=== PATIENT | female | born 1995 | race Caucasian/White ===

== ENCOUNTER 2019-07-08 10:21 | Inpatient (IN) | payer SELFPAY ==
[~2019-07-08] VITALS: Ht 170.2 cm; Wt 117.0 kg
[2019-07-08] MEDS ORDERED: KETOROLAC TROMETHAMINE 30 MG/ML VIAL IV STA (11:23)
[2019-07-08] MEDS ORDERED: KETOROLAC TROMETHAMINE 30 MG/ML VIAL ONE (11:29)
--- NOTE | 2019-07-08 11:45 | NUR ---
US AT BEDSIDE
--- NOTE | 2019-07-08 12:32 | Diagnostic Imaging Report ---
EXAM: Right upper quadrant abdominal ultrasound INDICATION: Right upper quadrant pain COMPARISON: None. TECHNIQUE: Transverse and longitudinal images of the right upper quadrant abdomen were obtained FINDINGS: Liver: Size: 17.7 cm in the right midclavicular line Appearance: Normal echogenicity, smooth contour Mass: No focal masses Gallbladder: Dependent gallstones in the gallbladder. No gall bladder wall thickening, pericholecystic fluid, or gallbladder distention. The gallbladder wall measures 2 mm. Negative sonographic Rayo's sign. Bile Ducts: Intrahepatic Ducts: No dilatation Extrahepatic Ducts: Common bile duct is mildly dilated, measuring up to 8 mm. Pancreas: Visualized portions of the pancreatic head, neck and proximal body are normal. Kidney: The right kidney measures 11.9 cm without evidence of hydronephrosis or stone. Vessels: Aorta: Visualized portions are normal Inferior Vena Cava: Visualized portions are normal Main Portal Vein: 0.8 cm, normal size with hepatopetal flow. Free Fluid: No ascites or pleural effusion IMPRESSION: Cholelithiasis without sonographic evidence of cholecystitis. Mildly dilated common bile duct measuring up to 8 mm. Comparison to prior imaging, if available would be helpful. If there is concern for choledocholithiasis, MRCP is recommended. Borderline hepatomegaly. Signed by: Phyllis Carney MD on 07/08/2019 12:29 PM
[2019-07-08] MEDS ORDERED: LEVOFLOXACIN 500MG/D5W 100ML 100 ML IV SCH (13:15)
[2019-07-08] MEDS ORDERED: MORPHINE SULFATE INJ 4 MG/ML INJ 1ML IV PRN (13:15)
[2019-07-08] MEDS ORDERED: ONDANSETRON HCL INJ 2MG/ML 2ML 2 MG/ML VIAL IV PRN (13:15)
--- NOTE | 2019-07-08 13:24 | NUR ---
PT TO BE ADMITTED, PT AWARE OF POC, VITAL SIGNS STABLE, PT VOICES NO COMPLAINTS AT THIS TIME
[2019-07-08] MEDS ORDERED: LEVOFLOXACIN 500MG/D5W 100ML IV SCH (13:30)
--- OUTSIDE RECORDS SUMMARY | 2019-07-08 13:46 | XMS REPORT ---
Author Author [facility] Address Unknown Phone Unavailable Care Team Providers Care Adjustment Supervisor Name Role Phone GERMAIN LINO Unavailable Unavailable Problems This patient has no known problems. Allergies, Adverse Reactions, Alerts This patient has no known allergies or adverse reactions. Medications This patient has no known medications. Results Test Description Test Time Test Comments Text Results Atomic Results Result Comments ABDOMEN LIMITED-HOPD 2019-07-08 12:27:00 [place] [address] Patient Name: KELLIE NÚÑEZ MR #: [id number] : 1995 Age/Sex: 23/F Req #: [id number] Adm Physician: Ordered by: GERMAIN LINO MD Report #: [id number] Location: [facility] Room/Bed: Procedure: [id number] HOPD/ ABDOMEN LIMITED-HOPD Exam Date: Exam Time: REPORT STATUS: Signed EXAM: Right upper quadrant abdominal ultrasound MARY CATION: Right upper quadrant pain COMPARISON: None. TECHNIQUE: Transverse and longitudinal images of the right upper quadrant abdomen were obtained FINDINGS: Liver: Size: 17.7 cm in the right midclavicular line Appearance: Normal echogenicity, smooth contour Mass: No focal masses Gallbladder: Dependent gallstones in the gallbladder. No gall bladder wall thickening, pericholecystic fluid, or gallbladder distention. The gallbladder wall measures 2 mm. Negative sonographic Rayo's sign. Bile Ducts: Intrahepatic Ducts: No dilatation Extrahepatic Ducts: Common bile duct is mildly dilated, measuring up to 8 mm. Pancreas: Visualized portions of the pancreatic head, neck and proximal body are normal. Kidney: The right kidney measures 11.9 cm without evidence of hydronephrosis or stone. Vessels: Aorta: Visualized portions are normal Inferior Vena Cava: Visualized portions are normal Main Portal Vein: 0.8 cm, normal size with hepatopetal flow. Free Fluid: No ascites or pleural effusion IMPRESSION: Cholelithiasis without sonographic evidence of cholecystitis. Mildly dilated common bile duct measuring up to 8 mm. Comparison to prior imaging, if available would be helpful. If there is concern for choledocholithiasis, MRCP is recommended. Borderline hepatomegaly. Signed by: Nahid Avila MD on 07/08/2019 12:29 PM Dictated By: NAHID AVILA MD 1229 Transcribed By: DION on 07/08/19 1229 COPY TO: GERMAIN LINO MD
[2019-07-08] MEDS: METRONIDAZOLE 500MG/NS 100ML 100 ML IV SCH ×2 (14:28→21:00)
[2019-07-08] MEDS ORDERED: METRONIDAZOLE 500MG/NS 100ML 100 ML IV ONE (14:31)
[2019-07-08] MEDS: LEVOFLOXACIN 500MG/D5W 100ML 100 ML IV SCH (15:29)
[2019-07-08] MEDS ORDERED: LEVOFLOXACIN 500MG/D5W 100ML 100 ML IV ONE (15:32)
--- NOTE | 2019-07-08 17:30 | NUR ---
RECEIVED PT FROM [facility] VIA EMT. PT IS ALERT, NO S/S OF DISTRESS. PT COMPLAINS OF NO PAIN. PT ORIENTED TO ROOM, CALL LIGHT AND INSTRUCTED PT TO CALL RN FOR HELP.
[2019-07-08 17:42] VITALS: BP 158/91
[2019-07-08] MEDS: D5.45%NS/KCL 20MEQ 1,000 ML IV SCH ×2 (17:48→21:40)
--- NOTE | 2019-07-08 18:00 | NUR ---
DR. CRAWOFRD SAW THE PT AND PUT IN NEW ORDERS
[2019-07-08 18:07] VITALS: BP 158/91
[2019-07-08] MEDS ORDERED: HYDRALAZINE HCL 20 MG/ML VIAL IV PRN (18:15)
[2019-07-08] MEDS: FAMOTIDINE 20 MG/2 ML VIAL IV SCH (18:21)
[2019-07-08] MEDS: METOCLOPRAMIDE HCL 10 MG/2ML VIAL IV SCH (18:21)
[2019-07-08 19:39] VITALS: BP 159/84
[2019-07-08 21:00] VITALS: BP 159/84
--- NOTE | 2019-07-08 21:00 | NUR ---
PATIENT RESTING IN BED AOX4, NO SIGNS OF DISTRESS NOTED. FAMILY MEMBERS AT BEDSIDE AND PATIENT VOICES NO PAIN AT THIS TIME. PATIENT VOICED UNDERSTANDING OF PROCEDURE TOMORROW AND SIGN CONSENT, PATIENT ALSO UNDERSTOOD NPO AFTER MIDNIGHT. BED IN LOWEST POSITION, SIDE RAILS ARE UP, CALL LIGHT WITHIN REACH, WILL CONTINUE TO MONITOR.
[2019-07-08 23:44] VITALS: BP 128/74
[2019-07-09] MEDS: D5.45%NS/KCL 20MEQ 1,000 ML IV SCH (03:02)
[2019-07-09 04:52] VITALS: BP 110/73
[2019-07-09 05:27] LABS: BASOPHILS # (AUTO) 0.1 (0.0-0.1); BASOPHILS % 0.6 % (0.0-1.0); EOSINOPHILS # (AUTO) 0.2 (0.0-0.4); EOSINOPHILS % 2.6 % (0.0-6.0); HEMATOCRIT 34.1 % (34.2-44.1); HEMOGLOBIN 10.6 g/dL (12.0-16.0); LYMPHOCYTES # (AUTO) 2.6 (1.0-3.2); LYMPHOCYTES % 32.9 % (18.0-39.1); MEAN CORPUSCULAR HEMOGLOBIN 26.3 pg (28-32); MEAN CORPUSCULAR HGB CONC 31.1 g/dL (31-35); MEAN CORPUSCULAR VOLUME 84.6 fL (81-99); MONOCYTES # (AUTO) 0.5 (0.2-0.8); MONOCYTES % 5.9 % (4.4-11.3); NEUTROPHILS # (AUTO) 4.5 (2.1-6.9); NEUTROPHILS % 57.7 % (38.7-80.0); PLATELET COUNT 241 x10e3/uL (140-360); RED BLOOD COUNT 4.03 x10e6/uL (3.6-5.1); RED CELL DISTRIBUTION WIDTH 12.9 % (11.7-14.4)
[2019-07-09] MEDS: METRONIDAZOLE 500MG/NS 100ML 100 ML IV SCH ×2 (05:34→13:59)
[2019-07-09 05:47] LABS: ALANINE AMINOTRANSFERASE 190 IU/L (0-55); ALBUMIN 2.9 g/dL (3.5-5.0); ALKALINE PHOSPHATASE 142 IU/L (40-150); AMYLASE 87 U/L (25-125); ANION GAP 9.6 mmol/L (8-16); BLOOD UREA NITROGEN 8 mg/dL (7-26); BUN/CREATININE RATIO 14 (6-25); CALCIUM 8.6 mg/dL (8.4-10.2); CARBON DIOXIDE 27 mmol/L (22-29); CHLORIDE 104 mmol/L (98-107); CREATININE, SERUM 0.56 mg/dL (0.57-1.11); EST GLOMERULAR FILTRATION RATE > 60 ML/MIN (60-); GLUCOSE 105 mg/dL (74-118); LIPASE 86 U/L (8-78); POTASSIUM 3.6 mmol/L (3.5-5.1); SODIUM 137 mmol/L (136-145)
--- NOTE | 2019-07-09 07:00 | NUR ---
RECEIVED AM REPORT AND ROUNDS DONE. PT IS ALERT SITTING UP N BED, NO S/S OF DISTRESS. CALL LIGHT WITHIN REACH AND INSTRUCTED PT TO CALL RN FOR HELP. FAMILY IS AT THE BEDSIDE. DISCUSSED WITH THE PT THAT SHE WILL BE GOING DOWNSTAIRS TO RADIOLOGY FOR IMAGING AND THEN THE SCHEDULED LAP SATHISH WILL BE THIS AFTERNOON. PT VERBALIZED UNDERSTANDING
[2019-07-09 07:46] VITALS: BP 139/90
--- NOTE | 2019-07-09 08:21 | NUR ---
TRANSPORTATION TOOK PT TO RADIOLOGY VIA WHEELCHAIR. PT LEFT ALERT AND IN STABLE CONDITION
--- NOTE | 2019-07-09 09:20 | NUR ---
ASSESSMENT: No concerns Pt states she is "not nervous" concerning upcoming procedure. Pt's parents and brother at bedside. Intervention: Provided hospitality and information on how to reach remote mortgage underwriter, if needed. Outcome: Pt & family expressed appreciation for visit. No need to follow at this time. JUAN RAMON WONG Content Assistant Spiritual Care Department O: [phone] Pager: [phone] ([phone] number calling from)
--- NOTE | 2019-07-09 10:06 | Diagnostic Imaging Report ---
MRCP (magnetic resonance cholangiopancreatography) HISTORY: Gallstones and Comparison: Right upper quadrant ultrasound of 07/08/2019 Technique: Multiplanar and multisequence MRI images of the abdomen were obtained without contrast. Three-dimensional reconstructed images of the biliary tree are also reviewed. FINDINGS: The common bile duct appears normal in caliber, measuring up to 6 mm. No intrahepatic biliary dilation. No pancreatic ductal dilation. No intrinsic or extrinsic defect is identified within the biliary system. Cholelithiasis without evidence of cholecystitis. No mass is identified in the region of the ampulla or pancreatic head. Unremarkable appearance of the liver, pancreas, spleen, adrenal glands, and kidneys. The visualized bowel loops appear normal in caliber. No free fluid or lymphadenopathy is seen within the abdomen. Impression: Cholelithiasis without evidence of cholecystitis. No filling defect in the nondilated common bile duct to suggest choledocholithiasis. Signed by: Phyllis Carney MD on 07/09/2019 10:02 AM
[2019-07-09] MEDS ORDERED: BUPIVACAINE HCL 0.5% INJ 30 ML VIAL INJ ONE (10:14)
--- NOTE | 2019-07-09 10:17 | Consultation ---
DATE OF CONSULTATION: 07/09/2019 HISTORY OF PRESENT ILLNESS: The patient is 23-year-old female, who presented to the emergency room with complaints of epigastric abdominal pain, right upper quadrant abdominal pain. She says she has had the pain off and on for several months, became much worse yesterday. She went to the emergency room, where ultrasound reveals gallstones. The patient says the pain is somewhat less now. She has no symptoms of jaundice. She does have associated nausea and vomiting. PAST MEDICAL HISTORY: Significant for previous gastric sleeve resection done about 10 months ago. She has no chronic medical problems. MEDICATIONS: There were no current medications. ALLERGIES: SHE HAS AN ALLERGY TO KEFLEX. FAMILY HISTORY: Noncontributory. SOCIAL HISTORY: The patient smokes cigarettes about a pack and half per day. Does not drink alcohol. REVIEW OF SYSTEMS: As stated above, otherwise was negative. PHYSICAL EXAMINATION: GENERAL: The patient is awake and alert. VITAL SIGNS: Normal. HEENT: Sclerae are not icteric. NECK: Has no masses. LUNGS: Equal breath sounds are clear bilaterally. CARDIAC: Regular rate and rhythm with no murmur. ABDOMEN: Mildly tender in the epigastrium. There is no distention. No mass. No organomegaly. EXTREMITIES: Have no edema. Pulses are palpable. NEUROLOGIC: Intact. ASSESSMENT: A 23-year-old female with symptoms of [id number] cholecystitis with cholelithiasis. She has mildly abnormal liver function tests. She is to be have an MRCP done today and internally plan laparoscopic cholecystectomy to be done today. Procedure was explained to the patient including risks, benefits, and alternatives, she understands, she has had the opportunity to ask questions. She is aware of the possible need for open surgery. Thank you for asking me to see Ms. Nunes. MD SALVATORE Hicks/INESSA /[id number]
--- NOTE | 2019-07-09 11:00 | NUR ---
Dr. Parker ordered HIDA scan for 0700, nuclear medicine has not performed this yet. The lap marlene is scheduled for noon. notified Meera Roberson NP and waiting for response on whether the HIDA scan should be cancelled.
[2019-07-09] MEDS: METOCLOPRAMIDE HCL 10 MG/2ML VIAL IV SCH ×2 (11:08→17:00)
[2019-07-09] MEDS: FAMOTIDINE 20 MG/2 ML VIAL IV SCH ×2 (11:08→17:00)
[2019-07-09 11:19] VITALS: BP 114/74
--- NOTE | 2019-07-09 11:40 | NUR ---
OR nurse is at the bedside to take the pt down for scheduled lap marlene
[2019-07-09] MEDS ORDERED: ONDANSETRON HCL INJ 2MG/ML 2ML 2 MG/ML VIAL IV PRN (12:45)
[2019-07-09] MEDS ORDERED: HYDROCODONE/APAP 5MG-325MG TAB PO PRN (12:45)
[2019-07-09] MEDS ORDERED: DEXTROSE 5%/0.45% SOD CHL 1,000 ML IV SCH (13:20)
[2019-07-09] MEDS ORDERED: ONDANSETRON HCL INJ 2MG/ML 2ML 2 MG/ML VIAL ONE ×2 (13:25→18:43)
--- NOTE | 2019-07-09 13:25 | NUR ---
received report from PACU. pt is stable and will be brought back to the unit
[2019-07-09] MEDS: LEVOFLOXACIN 500MG/D5W 100ML 100 ML IV SCH (15:00)
[2019-07-09 15:36] VITALS: BP 146/92
--- NOTE | 2019-07-09 17:00 | Operative Report ---
DATE OF PROCEDURE: 07/09/2019 SURGEON: Mani Abarca MD PREOPERATIVE DIAGNOSES: Jazlb-am-grjekiy cholecystitis, cholelithiasis. POSTOPERATIVE DIAGNOSES: Tjqgr-vm-xphlqan cholecystitis, cholelithiasis. PROCEDURES: Diagnostic laparoscopy, laparoscopic cholecystectomy. OIL WELL LOGGING ENGINEER: None. ANESTHESIA: General endotracheal. INDICATIONS AND FINDINGS: The patient is a 23-year-old female, admitted with complaints of epigastric and right upper quadrant abdominal pain. Workup revealed gallstones. Surgery based on the gallbladder was edematous, containing multiple small stones. Cystic duct was about 3 mm in diameter. Common bile duct was about 6 mm in diameter. Liver, stomach, lower abdomen all appeared normal, although mostly obscured by omentum. TECHNIQUE: After adequate general endotracheal anesthesia, the patient in supine position, the abdomen was prepped and draped in sterile fashion with ChloraPrep solution. Skin in the umbilicus was infiltrated with 0.5% Marcaine. Incision was made in the umbilicus. Abdominal wall was elevated and Veress needle was introduced. Pneumoperitoneum was then created. A 10 mm trocar and cannula was then passed through the umbilical wound. Laparoscopic camera was introduced. Initial laparoscopy revealed liver, stomach, and lower abdomen appeared normal. This mostly was obscured by omentum. A 10 mm trocar and cannula was placed in epigastrium and two 5 mm trocars and cannulas were placed in the right upper quadrant. These were placed under direct vision. Fundus of the gallbladder was grasped, retracted superiorly. The gallbladder was somewhat edematous, but could be grasped. Neck of the gallbladder was grasped, retracted laterally. Peritoneum over the neck of the gallbladder was incised. The gallbladder cystic duct junction was dissected free. Cystic artery was dissected free. The neck of the gallbladder completely dissected free. Cystic artery was divided between hemoclips close to the gallbladder. Cystic duct was also divided between hemoclips with 3 clips being left on the common bile duct side. The gallbladder was dissected free from the liver using scissors and electrocautery. Once it was entirely free, it was placed into an Endopouch and brought through the epigastric cannula, contained multiple small stones. Gallbladder bed was inspected for hemostasis, which was seem to be adequate. It was irrigated with saline. All fluid aspirated. Inspected once again for hemostasis, which was seem to be adequate. Instruments and cannulas were removed. Pneumoperitoneum was evacuated. Wounds were then closed. Fascia in the umbilical and epigastric wound closed with 0 Vicryl. Skin to all wounds closed with 4-0 Vicryl in subcuticular fashion. Dermabond and sterile dressing were applied to each wound. The patient tolerated the procedure well. Estimated blood loss was 10 mL. There were no complications. All counts were correct and the patient was taken to the recovery room in satisfactory condition. MD FILIBERTO HicksG/MODL /[id number] cc: Naeem Parker MD
[2019-07-09] MEDS ORDERED: DEXAMETHASONE SOD PHOS INJ 4 MG/ML VIAL ONE (18:43)
[2019-07-09] MEDS ORDERED: PROPOFOL IV EMULSION 10 MG/ML 20 ML VIAL ONE (18:43)
[2019-07-09] MEDS ORDERED: NEOSTIGMINE 5 MG/5ML SYR ONE (18:43)
[2019-07-09] MEDS ORDERED: ROCURONIUM BROMIDE 10 MG/ML 5ML VIAL ONE (18:43)
[2019-07-09] MEDS ORDERED: DESFLURANE 240 ML BTL INH ONE (18:43)
[2019-07-09] MEDS ORDERED: GLYCOPYRROLATE INJ 1MG/ 5 ML SYR ONE (18:43)
[2019-07-09] MEDS ORDERED: LIDOCAINE HCL 2% LOCAL INJ 5 ML SDV VIAL INJ ONE (18:43)
[2019-07-09] MEDS ORDERED: KETOROLAC TROMETHAMINE 30 MG/ML VIAL ONE (18:43)
--- NOTE | 2019-07-09 19:18 | NUR ---
Patient seen during nursing rounds. Patient alert and oriented x3. Mother at bedside. Pt desires to go home tonight even if it means against medical advice. Meera Roberson (MAGY) was asked by day nurse (Aarti) if pt ok to be discharged tonight and Meera said "no". Pt still adamant of going home tonight. Pt denies any pain or discomfort.
--- NOTE | 2019-07-09 19:21 | NUR ---
Meera Roberson (BILLET GRINDER for Dr. Parker) was called by celestine LEZAMA (Aarti) and informed that patient wants to leave against medical advice. Meera said that was fine and that she is aware.
--- NOTE | 2019-07-09 19:24 | NUR ---
meera tavarez NP wanted to keep the patient over night for observation s/p lap marlene. pt stated that she thought "it was unnecessary". pt stated she felt fine and that she could not afford to pay for any more fees since she was self-pay. pt was instructed that it was her choice to leave AMA if she decided but would not receive any prescriptions, pt verbalized understanding, and stated that she was ok with that and still wanted to leave AMA. notified Meera Tavarez NP at 1920. also notified TEJA Cummins (household refrigerator mechanic) and TEJA Maier (charge nurse). Rodney Hollis RN was present and witnessed the conversation with the patient.
--- NOTE | 2019-07-09 19:30 | NUR ---
IV on left AC (20g) was taken out and site covered with 2x2 gauze and tape.
--- NOTE | 2019-07-09 19:35 | NUR ---
Pt left the unit with her mother (Jenna Nunes). Patient appear in stable condition. Telemetry box (#4) returned to Tele office. Pt did sign AMA papers.
[2019-07-09] MEDS ORDERED: MIDAZOLAM HCL 2 MG/2 ML VIAL ONE (19:42)
[2019-07-09] MEDS ORDERED: FENTANYL CITRATE/PF 100MCG/2 ML INJ ONE (19:42)
--- NOTE | 2019-07-11 15:57 | Discharge Summary ---
ADMISSION DIAGNOSES: 1. Acute cholelithiasis. 2. Elevated blood pressure without history of hypertension. 3. Obesity with a BMI of 40.4. DISCHARGE DIAGNOSES: 1. Acute cholelithiasis. 2. Elevated blood pressure without history of hypertension. 3. Obesity with a BMI of 40.4. 4. Status post laparoscopic cholecystectomy. HISTORY: None. SURGICAL HISTORY: None. FAMILY HISTORY: None. SOCIAL HISTORY: None. HOSPITAL COURSE: A 23-year-old female admits with complaint of abdominal pain in the right upper quadrant for 2 days. She had associated nausea, but denies vomiting and diarrhea as well as fever. On admission, the patient had an ultrasound of the abdomen, which showed cholelithiasis without sonographic evidence of cholecystitis, mildly dilated common bile duct measuring up to 8 mm. An MRCP was done, which was negative. The patient had a laparoscopic cholecystectomy on 07/09/2019. She tolerated the procedure well, was getting pain medicine and tolerating p.o. The patient decided to leave A prior to getting clearance from the surgeon. The patient understands risks involved with leaving against medical advice and accepts responsibility. At time of discharge, vital signs are stable and the patient is afebrile. Dictated by Meera Rboerson, MAGY MD SHERICE French/INESSA /[id number]
== END 2019-07-09 19:35 | disposition left against medical advice (07) | DRG 418 ==
LOC: FSED 10:21 → ERHOLD 13:10 → MED/SURG3 17:19
PROVIDERS: ADMIT Internal Medicine; ATTEND Internal Medicine
PROC: 0FT44ZZ Resection of Gallbladder, Percutaneous Endoscopic Approach (ICD-10-PCS; principal; 2019-07-09 11:56)
DX: K80.12 Calculus of gallbladder with acute and chronic cholecystitis without obstruction (principal); Z68.41 Body mass index [BMI] 40.0-44.9, adult; R03.0 Elevated blood-pressure reading, without diagnosis of hypertension; Z88.1 Allergy status to other antibiotic agents; E66.9 Obesity, unspecified; Z98.84 Bariatric surgery status; Z88.8 Allergy status to other drugs, medicaments and biological substances; F17.210 Nicotine dependence, cigarettes, uncomplicated
CPT/HCPCS: 36415; 74181; 76705; 80048; 80053; 80076; 81003; 81025; 82150; 83690; 85025; 88304; 99284; J1100; J1885; J1956; J2001; J2250; J2270; J2405; J2765; J3010